=== PATIENT | female | born 1965 | race Caucasian/White ===

== ENCOUNTER 2019-11-01 19:20 | Emergency (ER) | payer OTHER ==
[2019-11-01 19:29] VITALS: TEMP 98.1; BMI 24.2
--- NOTE | 2019-11-01 19:33 | PDOC ---
History of Present Illness - General Chief Complaint: Headache Stated Complaint: POSSIBLE MENINGITIS Time Seen by Provider: 11/01/19 19:33 History Source: Patient Exam Limitations: No Limitations - History of Present Illness Initial Comments: 54-year-old female with past medical history of meningitis four years ago presented to the emergency department for headache associated with bodyaches since yesterday. Patient reported a coworker went home Sunday with bodyaches nausea and vomiting. She reported she started to feel a small headache on the top of her head , but the majority of symptoms started on Sunday. She denied weakness, numbness, confusion, visual changes, hallucinations, chest pain , shortness of breath, cough, nausea, vomiting, diarrhea, abdominal pain, dysuria, alanis. She reported she is concerned that she could have meningitis again, as her symptoms last time started with a headache and bodyaches. She reported she last took naproxen 600 mg around three in the morning. ROS General: admitted to subjective fever, generalized weakness, body aches. HEENT: denied sore throat, rhinorrhea, ear pain. Cardiovascular: denied chest pain, palpitations, syncope, diaphoresis. Respiratory: denied shortness of breath, cough, sputum production, hemoptysis. Gastrointestinal: denied abdominal pain, nausea, vomiting, diarrhea, constipation, blood in stool. Genitourinary: denied dysuria, increased urinary frequency, hematuria, urinary incontinence, flank pain. Back: denied back pain. Musculoskeletal: denied joint pain, muscle pain, joint swelling. Neurological: admitted to headache. denied dizziness, numbness, tingling, weakness. Integumentary: denied rash, laceration, abrasion. Hematologic/Lymphatic: denied bruising or bleeding. PE Constitutional: Well-nourished, Well-developed, appearing stated age. HEENT: head is normocephalic, atraumatic. EOMI. PERRLA. Neck: supple. Full ROM. Cardiovascular: regular heart rhythm. no murmurs. no pericardial friction rub. Respiratory: clear to auscultation bilaterally. no crackles, rhonchi or wheezing. no stridor. Gastrointestinal: soft, nontender. normal bowel sounds. no rebound, guarding, masses. Extremities: peripheral pulses intact. no lower extremity edema. Neurological: alert. oriented x3. CN2-12 intact. 5/5 strength all extremities. full sensation all extremities and bilateral face. no ataxia. gait not observed. Psych: awake, alert, oriented x3. follows commands. answers questions appropriately. Past History - Past Medical History Allergies/Adverse Reactions: Allergies Allergy/AdvReac Type Severity Reaction Status Date / Time No Allergy Information Allergy Verified 11/01/19 19:29 Available Home Medications: Ambulatory Orders NK [No Known Home Medication] 11/01/19 Other medical history: menengitis - Psycho Social/Smoking Cessation Hx Smoking History: Never smoked Have you smoked in the past 12 months: No Number of Cigarettes Smoked Daily: 0 Hx Alcohol Use: No Substance Use Type: None Hx Substance Use Treatment: No *Physical Exam - Vital Signs Last Vital Signs Temp Pulse Resp BP Pulse Ox 98.1 F 82 18 132/74 99 11/01/19 19:27 11/01/19 19:27 11/01/19 19:27 11/01/19 19:27 11/01/19 19:27 Procedures - Lumbar Puncture Indication: Meningitis CT Scan: Yes Betadine Prep: Yes Position: Right lateral decubitus Site: L3-L4 Local Anesthesia: 1% Lidocaine with epi Volume(ml): 10 Lumbar Puncture Kit: Adult Opening Pressure(mmHg): 16.5 Traumatic Tap: No Tubes Obtained: 4 Clear Fluid: Yes Complications: No ED Treatment Course - LABORATORY CBC & Chemistry Diagram: 11/01/19 20:00 11/01/19 21:05 Medical Decision Making - Medical Decision Making 54 year old female with above PMH presented to ED for headache, body aches since Sunday. Initial Vital Signs Temp Pulse Resp BP Pulse Ox 98.1 F 82 18 132/74 99 11/01/19 19:27 11/01/19 19:27 11/01/19 19:27 11/01/19 19:27 11/01/19 19:27 Afebrile. No tachycardia. No tachypnea. No hypotension. No hypoxia on room air. Pt is concerned about meningitis as she had it in the past. Pt is currently afebrile, last took NSAIDs around 0300 AM. Pt appears well, is neurologically intact, no mental status changes, no rash. Low suspicion for meningitis. Likely viral syndrome. Labs ordered: CBC, CMP, lactate, serum , coags, influenza Imaging ordered: CXR, CT head Medications ordered: tylenol IV, normal saline bolus 1000 cc once 11/01/19 20:55 CXR my view: sharp costophrenic angles. no cardiomegaly. no infiltrate. no large pneumothorax. -Pending official report 11/01/19 21:04 Jungle top hemolyzed, will repeat. Laboratory Last Values WBC 10.0 K/mm3 (4.0-10.0) 11/01/19 20:00 RBC 4.55 M/mm3 (3.60-5.2) 11/01/19 20:00 Hgb 12.3 GM/dL (10.7-15.3) 11/01/19 20:00 Hct 39.3 % (32.4-45.2) 11/01/19 20:00 MCV 86.2 fl (80-96) 11/01/19 20:00 MCH 26.9 pg (25.7-33.7) 11/01/19 20:00 MCHC 31.2 g/dl (32.0-36.0) L 11/01/19 20:00 RDW 15.3 % (11.6-15.6) D 11/01/19 20:00 Plt Count 240 K/MM3 (134-434) 11/01/19 20:00 MPV 11.0 fl (7.5-11.1) 11/01/19 20:00 Absolute Neuts (auto) 8.1 K/mm3 (1.5-8.0) H 11/01/19 20:00 Neutrophils % 80.9 % (42.8-82.8) D 11/01/19 20:00 Lymphocytes % 13.6 % (8-40) D 11/01/19 20:00 Monocytes % 3.8 % (3.8-10.2) 11/01/19 20:00 Eosinophils % 1.2 % (0-4.5) 11/01/19 20:00 Basophils % 0.5 % (0-2.0) 11/01/19 20:00 Nucleated RBC % 0 % (0-0) 11/01/19 20:00 PT with INR 12.90 SEC (9.7-13.0) 11/01/19 20:00 INR 1.09 (0.83-1.09) 11/01/19 20:00 PTT (Actin FS) 34.4 SECONDS (25.2-36.5) 11/01/19 20:00 Sodium Cancelled 11/01/19 20:00 Potassium Cancelled 11/01/19 20:00 Chloride Cancelled 11/01/19 20:00 Carbon Dioxide Cancelled 11/01/19 20:00 Anion Gap Cancelled 11/01/19 20:00 BUN Cancelled 11/01/19 20:00 Creatinine Cancelled 11/01/19 20:00 Est GFR (CKD-EPI)AfAm Cancelled 11/01/19 20:00 Est GFR (CKD-EPI)NonAf Cancelled 11/01/19 20:00 Random Glucose Cancelled 11/01/19 20:00 Lactic Acid 1.2 mmol/L (0.4-2.0) 11/01/19 20:00 Calcium Cancelled 11/01/19 20:00 Magnesium Cancelled 11/01/19 20:00 Total Bilirubin Cancelled 11/01/19 20:00 AST Cancelled 11/01/19 20:00 ALT Cancelled 11/01/19 20:00 Alkaline Phosphatase Cancelled 11/01/19 20:00 Total Protein Cancelled 11/01/19 20:00 Albumin Cancelled 11/01/19 20:00 Serum , Qual Cancelled 11/01/19 20:00 Influenza A (Rapid) Negative (Negative) 11/01/19 19:43 Influenza B (Rapid) Negative (Negative) 11/01/19 19:43 CT report: Referring Physician: CARMINE CISNEROS Comments: Jameson Gibson MD wrote on Nov 01, 2019 at 09:00 PM: Referring Physician: CARMINE CISNEROS Patient Name: DG READ THIS IS A PRELIMINARY REPORT FROM [facility]NAL OPERATOR DATE OF SERVICE: 2019-11-01 20:07:50 IMAGES: [id number] EXAM:CT HEAD WITHOUT CONTRAST HISTORY: 54-year-old female, headache COMPARISON: No available comparison exams. TECHNIQUE: Axial non-contrast images of the head obtained from the skull base to the vertex. Radiation Dose Reduction: This CT exam was performed using one or more of the following dose reduction techniques: automated exposure control, adjustment of the mA and/or kV according to patient size, use of iterative reconstruction technique. Radiation Dose: Based on a 16 cm phantom, the estimated radiation dose CTDIvol mGy for each series in this exam is 23.9. The estimated cumulative dose (DLP mGy-cm) is 533.0. FINDINGS: Parenchyma: No acute intracranial hemorrhage or mass effect. No hypodensity. Extra-axial collection: No extra-axial fluid collection or hemorrhage. Ventricles and cisterns: Normal and symmetric in size and shape. No SAH. Paranasal sinuses: Visualized portions are unremarkable. Mastoid air cells: Unremarkable. Orbits: Visualized portions are unremarkable. Calvarium: No acute fracture. IMPRESSION: No evidence of acute intracranial abnormality. One or more of the following dose reduction techniques were used: automated exposure control, adjustment of the mA and/or kV according to patient size, use of iterative reconstructive technique THIS DOCUMENT HAS BEEN ELECTRONICALLY SIGNED Jameson Gibson MD 11/01/2019 20:59 EST M.D. Please call Imaging Associate Trainer [phone] with questions. Jameson iGbson MD Clinicians - Please contact Imaging Associate Trainer with further questions at [phone] Patients - Please contact your Ordering Provider with questions. No elevated WBC. Influenza negative. No lactic acidosis. 11/01/19 21:21 Pt reported no change in symptoms with current treatment, would like LP to be performed. Pt have verbal and written consent. Risks benefits explained. Forrest Holguin witnessed. Medications ordered: normal saline bolus 1000 cc once, morphine 2 mg IV once 11/01/19 22:35 CMP Sodium 142 mmol/L (136-145) 11/01/19 21:05 Potassium 4.0 mmol/L (3.5-5.1) 11/01/19 21:05 Chloride 111 mmol/L (98-107) H 11/01/19 21:05 Carbon Dioxide 24 mmol/L (21-32) 11/01/19 21:05 Anion Gap 6 MMOL/L (8-16) L 11/01/19 21:05 BUN 8.2 mg/dL (7-18) 11/01/19 21:05 Creatinine 0.7 mg/dL (0.55-1.3) 11/01/19 21:05 Est GFR (CKD-EPI)AfAm 115.45 11/01/19 21:05 Est GFR (CKD-EPI)NonAf 99.62 11/01/19 21:05 Random Glucose 98 mg/dL (74-106) 11/01/19 21:05 Lactic Acid 1.2 mmol/L (0.4-2.0) 11/01/19 20:00 Calcium 8.5 mg/dL (8.5-10.1) 11/01/19 21:05 Magnesium Cancelled 11/01/19 20:00 Total Bilirubin 0.4 mg/dL (0.2-1) 11/01/19 21:05 AST 15 U/L (15-37) 11/01/19 21:05 ALT 22 U/L (13-61) 11/01/19 21:05 Alkaline Phosphatase 88 U/L (45-117) 11/01/19 21:05 Total Protein 6.6 g/dl (6.4-8.2) 11/01/19 21:05 Albumin 3.7 g/dl (3.4-5.0) 11/01/19 21:05 Serum , Qual Negative 11/01/19 21:05 No clinically significant lab abnormalities. No LILIANA. No transaminitis. Serum testing negative. Pt reassessed, sleeping comfortably. 11/02/19 02:27 LP was performed, see procedure note. Pt given additional morphine after procedure and reglan. CSF studies show normal glucose, normal WBC, no bacteria on gram stain. Pt discharged and advised to continue symptomatic treatment, F/U with PCP, will be called with remainder of CSF results. Discharge - Discharge Information Problems reviewed: Yes Clinical Impression/Diagnosis: Viral syndrome Condition: Improved Disposition: HOME - Admission No - Follow up/Referral - Patient Discharge Instructions Additional Instructions: Follow up with your primary care doctor within 3 days. Your care is not complete until you follow up. Take tylenol over the counter for headache. Take as advised on label. Take ibuprofen over the counter for body aches. Take as advised on label. Tylenol and ibuprofen are not the same medication and can be used together safely. Drink lots of fluids to stay hydrated. Get lots of sleep over the next few days. Return to the Emergency Department for fever>5 days, fever>103F with tylenol use , chest pain, shortness of breath, continuous vomiting, weakness, numbness, tingling, confusion, or any other new, worsening or concerning symptoms. The preliminary results of your spinal fluid revealed no bacteria and was normal. You will be called with the results of the other testing that takes a day or so to result. - Post Discharge Activity Work/Back to School Note: Back to Work
--- NOTE | 2019-11-01 19:36 | PDOC ---
Attending Attestation - Resident Resident Name: Yasmeen Pearson - ED Attending Attestation I have performed the following: I have examined & evaluated the patient, The case was reviewed & discussed with the resident, I agree w/resident's findings & plan - HPI HPI: 11/01/19 19:44 Pt comes with flu like symptoms and she has a headache; she is worried that this is a meningitis, as she has had this in the past. - Physicial Exam PE: 11/01/19 20:54 Pt is afebrile RIght eye photophobia PERRLA HEENT normal heart and lungs clear abdomen soft NT ND flank nontender extremities: no edema - Medical Decision Making 11/01/19 20:53 CXR normal 11/01/19 20:54 normal CBC cancelled Chem INR normal 11/01/19 21:03 Patient Name: DG READ THIS IS A PRELIMINARY REPORT FROM [facility] TECHNIC[facility] DATE OF SERVICE: 2019-11-01 20:07:50 IMAGES: [id number] EXAM:CT HEAD WITHOUT CONTRAST HISTORY: 54-year-old female, headache COMPARISON: No available comparison exams. TECHNIQUE: Axial non-contrast images of the head obtained from the skull base to the vertex. Radiation Dose Reduction: This CT exam was performed using one or more of the following dose reduction techniques: automated exposure control, adjustment of the mA and/or kV according to patient size, use of iterative reconstruction technique. Radiation Dose: Based on a 16 cm phantom, the estimated radiation dose CTDIvol mGy for each series in this exam is 23.9. The estimated cumulative dose (DLP mGy-cm) is 533.0. FINDINGS: Parenchyma: No acute intracranial hemorrhage or mass effect. No hypodensity. Extra-axial collection: No extra-axial fluid collection or hemorrhage. Ventricles and cisterns: Normal and symmetric in size and shape. No SAH. Paranasal sinuses: Visualized portions are unremarkable. Mastoid air cells: Unremarkable. Orbits: Visualized portions are unremarkable. Calvarium: No acute fracture. IMPRESSION: No evidence of acute intracranial abnormality 11/01/19 22:26 Chem is normal Pt is feeling better 11/02/19 00:31 LP done successfully; we got it on the 3rd attempt. Pt tolerated the procedure well. Closing pressure was 16.5mm H2O 11/02/19 02:19 CSF is clear and colorless; protein is slightly elevated and GLC is WNL 11/02/19 02:23 Pt has no xanthochronia, she has no blood in the CSF and no sign of bacteria. There is no bacteria visible on gram stain (the laborer prestressed concretemartina, just called to let me know.) Pt is stable for discharge
[2019-11-01] MEDS ORDERED: SODIUM CHLORIDE 1,000 ML IV STA ×2 (19:42→21:05)
[2019-11-01] MEDS ORDERED: ACETAMINOPHEN 1000 MG/100 ML VIAL (NON FORMULARY) IVPB ONE (19:42)
[2019-11-01] MEDS ORDERED: ACETAMINOPHEN INJECTION 100 ML IVPB ONE (19:44)
[2019-11-01 20:16] LABS: BASO % 0.5 % (0-2.0); EOS % 1.2 % (0-4.5); HEMATOCRIT 39.3 % (32.4-45.2); HEMOGLOBIN 12.3 GM/dL (10.7-15.3); LYMPH % 13.6 % (8-40); MCH 26.9 pg (25.7-33.7); MCHC 31.2 g/dl (32.0-36.0); MEAN CELL VOLUME 86.2 fl (80-96); MONO % 3.8 % (3.8-10.2); NEUT % 80.9 % (42.8-82.8); PLATELET COUNT 240 K/MM3 (134-434); RBC 4.55 M/mm3 (3.60-5.2); RDW 15.3 % (11.6-15.6)
[2019-11-01 20:41] LABS: INR 1.09 (0.83-1.09); PROTHROMBIN TIME (PATIENT) 12.9 SEC (9.7-13.0)
[2019-11-01 20:44] LABS: ACTIVATED PTT 34.4 SECONDS (25.2-36.5)
[2019-11-01] MEDS ORDERED: morphine CARPU-JECT 2 MG/1 ML DISP.SYRIN IVPUSH ONE (21:13)
[2019-11-01] MEDS ORDERED: MORPHINE SULFATE 2 MG/ML VIAL ONE (21:31)
[2019-11-01 22:09] LABS: ALBUMIN 3.7 g/dl (3.4-5.0); BILIRUBIN,TOTAL 0.4 mg/dL (0.2-1); BLOOD UREA NITROGEN 8.2 mg/dL (7-18); CALCIUM 8.5 mg/dL (8.5-10.1); CREATININE 0.7 mg/dL (0.55-1.3); TOT PROT 6.6 g/dl (6.4-8.2)
[2019-11-02] MEDS ORDERED: LIDOCAINE HCL 1%, 10 MG/ML (20ML VIAL) ONE (00:01)
[2019-11-02] MEDS ORDERED: MORPHINE SULFATE 2 MG/ML VIAL IVPUSH ONE (00:35)
[2019-11-02] MEDS ORDERED: LIDOCAINE 5% TOPICAL PATCH TP ONE (00:35)
[2019-11-02] MEDS ORDERED: LIDOCAINE 5% TOPICAL PATCH ONE (01:05)
[2019-11-02] MEDS ORDERED: MORPHINE SULFATE 2 MG/ML VIAL ONE (01:05)
[2019-11-02 01:12] LABS: CSF APPEARANCE CLEAR; CSF COLOR COLORLESS
[2019-11-02 01:14] LABS: CSF WBC 198
[2019-11-02 01:21] LABS: BF GLUCOSE (CSF ONLY) 53 mg/dL (40-70)
[2019-11-02] MEDS ORDERED: METOCLOPRAMIDE HCL INJECTION 10 MG/2 ML VIAL IVPUSH ONE (02:25)
[2019-11-02] MEDS ORDERED: METOCLOPRAMIDE HCL INJECTION 10 MG/2 ML VIAL ONE (02:27)
[2019-11-02 02:34] VITALS: BP 114/76; PULSE 72
[2019-11-02] MEDS ORDERED: LIDOCAINE PATCH REMOVAL MC SCH (22:00)
[2019-11-06 06:06] LABS: LYME PCR CSF Negative (Negative)
== END 2019-11-02 03:03 | disposition home or self-care (01) ==
LOC: JER 19:20
PROC: 009U3ZX Drainage of Spinal Canal, Percutaneous Approach, Diagnostic (ICD-10-PCS; principal; 2019-11-01)
PROC: 3E0337Z Introduction of Electrolytic and Water Balance Substance into Peripheral Vein, Percutaneous Approach (ICD-10-PCS; 2019-11-01)
PROC: 3E033NZ Introduction of Analgesics, Hypnotics, Sedatives into Peripheral Vein, Percutaneous Approach (ICD-10-PCS; 2019-11-01)
PROC: 3E033NZ Introduction of Analgesics, Hypnotics, Sedatives into Peripheral Vein, Percutaneous Approach (ICD-10-PCS; 2019-11-01)
PROC: 3E033GC Introduction of Other Therapeutic Substance into Peripheral Vein, Percutaneous Approach (ICD-10-PCS; 2019-11-01)
PROC: 3E033NZ Introduction of Analgesics, Hypnotics, Sedatives into Peripheral Vein, Percutaneous Approach (ICD-10-PCS; 2019-11-01)
DX: B34.9 Viral infection, unspecified (principal)
CPT/HCPCS: 36415; 70450-TC; 71046-TC-FY; 80053; 82945; 83605; 84157; 84703; 85025; 85610; 85730; 86592; 87070; 87205; 87476; 87529; 87804; 87899; 99284-25; J0131; J7030

== ENCOUNTER 2020-10-27 11:13 | Day surgery (SDC) | payer OTHER ==
[2020-10-25 14:41] VITALS: BMI 25.4
[2020-10-27 13:22] VITALS: TEMP 97.9
[2020-10-27 14:06] VITALS: BP 116/76; PULSE 62
== END 2020-10-27 13:55 | disposition home or self-care (01) ==
LOC: FASU 11:13 → MERGE 11:13 → FASU 13:55
PROVIDERS: ATTEND Internal Medicine Gastroenterology
PROC: 0DJD8ZZ Inspection of Lower Intestinal Tract, Via Natural or Artificial Opening Endoscopic (ICD-10-PCS; principal; 2020-10-27 12:34)
DX: Z12.11 Encounter for screening for malignant neoplasm of colon (principal); K64.1 Second degree hemorrhoids